=== PATIENT | male | born 1945 | race Caucasian/White ===

== ENCOUNTER 2018-11-16 12:44 | Inpatient (IN) | payer OTHER, MEDICAID ==
[2018-11-16 16:08] LABS: PLATELET COUNT 164 10^3/uL (150-400)
--- NOTE | 2018-11-16 16:08 | ECHO ---
[email or web address] [address] [address] Main: [phone] Echocardiography Examination Transthoracic Name: SANDRITA MURPHY MR#: [id number] Study Date: 11/16/2018 Study Time: 03:15 PM Date of : 1945 Age: 73 year(s) Height: 175.3 cm (69 in.) Weight: 122.47 kg (270 lb.) BSA: 2.35 m2 Gender: Male Examination: Echo Contrast: Image Quality: Adequate Rhythm: Heart Rate: BP: 135 mmHg/82 mmHg Indication: chf, assess PA pressures Procedure Staff Referring Physician: Epic Specialist: Ginny Carver [facility] Reading Physician: Cuauhtemoc Nava MD Requesting Provider: Ordering Physician: Manny Davenport MD Indication: chf, assess PA pressures Measurements Chambers AV/MV Label Value Normal Value Label Value Normal Value IVSd, 2D 1.1 cm (0.6cm - 1.1cm) AV PGmax 11 mmHg LVDd, 2D 5.8 cm (4.2cm - 5.9cm) AV PGmean 8 mmHg LVDs, 2D 3.7 cm (2.1cm - 4cm) AV Vmax 1.68 m/s LVEF, 2D 55 % (54% - 74%) TOMAS D (continuity eq. 1.9 cm2 LVOT PGmean 2 mmHg VTI) LVOT Vmean 0.71 m/s MV A Vmax 0.94 m/s LVOTd 2.2 cm (1.9cm - 2.1cm) MV DT 331 ms LVPWd, 2D 1.1 cm (0.6cm - 1cm) MV E' lateral 0.09 m/s RVDd, 2D 3.7 cm (1.9cm - 3.8cm) MV E' mean 0.07 m/s LA Volume, BP 51 ml (18ml - 58ml) MV E' septal 0.05 m/s LADs, 2D 3.7 cm (3cm - 4cm) MV E Vmax 0.71 m/s LAESV index, BP 21.7 ml/m2 MV E/A 0.76 Additional Vessels MV E/E' lateral 7.8 Label Value Normal Value MV E/E' mean 10.14 AoAsc 3.7 cm MV E/E' septal 13.3 (0.45 - 1.25) AoRoot, 2D 3.4 cm (1.4cm - 2.6cm) MV PHT 0.1 s MV PHT 102 ms MVA PHT 2.2 cm2 TV/PV Patient: SANDRITA MURPHY Study Date: 11/16/2018 Page 1 of 3 03:15 PM Label Value Normal Value RA Pressure 5 mmHg RVSP 22 mmHg TR Pmax 17 mmHg TR Vmax 2.09 m/s PV PGmax 4 mmHg PV Vmax, Caliper 0.98 m/s (0.6m/s - 0.9m/s) Conclusions Left Ventricle: CONCLUSIONS:1)Normal LV size and systolic function with a LVEF of 55% and normal wall motions.2)Mild concentric LVH with mild diastolic dysfunction noted.3)Normal RV size and RV systolic function noted.4)Borderline left atrial enlargement noted.5)Trivial MR without MV prolapse.6)Trivial TR with estimated normal PA pressures.7)Upper limits of normal size ascending thoracic aorta (3.7cm). Findings Technically difficult due to patient body habitus. Left Ventricle: Left ventricle is normal in size. CONCLUSIONS: 1)Normal LV size and systolic function with a LVEF of 55% and normal wall motions. 2)Mild concentric LVH with mild diastolic dysfunction noted. 3)Normal RV size and RV systolic function noted. 4)Borderline left atrial enlargement noted. 5)Trivial MR without MV prolapse. 6)Trivial TR with estimated normal PA pressures. 7)Upper limits of normal size ascending thoracic aorta (3.7cm).There is mild concentric left ventricular hypertrophy. There are no regional wall motion abnormalities. Grade I Diastolic Dysfunction. Right Ventricle: Normal size right ventricle. Right ventricular systolic function is normal. Left Atrium: The left atirum is borderline dilated. Mitral Valve: Mitral valve appears structurally normal. Trivial mitral regurgitation. No mitral valve stenosis. Mild mitral annular calcification. Aortic Valve: Aortic leaflets are structurally normal. No significant aortic valve regurgitation. There is no aortic stenosis. Aortic leaflets exhibit mild calcification. Tricuspid Valve: Tricuspid valve leaflets are structurally normal. Trivial tricuspid regurgitation. No tricuspid valve stenosis. Right Ventricular systolic pressure is measured at 22 mmHg. Pulmonary artery pressure normal. Pulmonic Valve: Pulmonic leaflets are structurally normal. No significant pulmonic valve regurgitation is evident. Aorta: The aortic root size in 2D measures 3.4 cm. The ascending aorta measures 3.7 cm. Aorta Measurements AoRoot, 2D is 3.4 cm. Exam Details Procedure Ordered: Echo Procedure Status: Routine study Patient: SANDRITA MURPHY Study Date: 11/16/2018 Page 2 of 3 03:15 PM Image Quality: Adequate Facility Location: Cardiac Echo 1 (No Signature Object) Patient: SANDRITA MURPHY Study Date: 11/16/2018 Page 3 of 3 03:15 PM [id number]
[2018-11-16 16:14] LABS: INR 0.99 (0.83-1.16); PROTIME(PATIENT) 12.7 SEC (12.0-15.0)
[2018-11-16] MEDS ORDERED: IOPAMIDOL (ISOVUE-370) 150 ML BTL IV ONE (16:29)
[2018-11-16] MEDS: FUROSEMIDE 40 MG/4 ML VIAL IVP SCH ×2 (17:33→23:45)
[2018-11-17] MEDS: FUROSEMIDE 40 MG/4 ML VIAL IVP SCH (06:18)
--- NOTE | 2018-11-17 06:46 | CPEKG ---
Test Reason : OPEN Blood Pressure : / mmHG Vent. Rate : 061 BPM Atrial Rate : 060 BPM P-R Int : 203 ms QRS Dur : 147 ms QT Int : 462 ms P-R-T Axes : 040 -80 016 degrees QTc Int : 466 ms Sinus rhythm Right bundle branch block Inferior infarct, old Confirmed by Manny Self ([id number]) on 11/17/2018 6:45:52 AM Referred By: MANNY SELF Confirmed By:Manny Self
[2018-11-17] MEDS: PANTOPRAZOLE SODIUM 40 MG TAB PO SCH ×2 (08:34→20:51)
[2018-11-17] MEDS: amLODIPine BESYLATE 5 MG TAB PO SCH (08:34)
[2018-11-17] MEDS: ALLOPURINOL 300 MG TAB PO SCH (08:34)
[2018-11-17] MEDS: LISINOPRIL 20 MG TAB PO SCH (08:35)
[2018-11-17] MEDS: FOLIC ACID 1 MG TAB PO SCH (08:35)
[2018-11-17] MEDS: GABAPENTIN 300 MG CAP PO SCH ×2 (08:35→20:50)
[2018-11-17] MEDS: TAMSULOSIN HCL 0.4 MG CAP PO SCH (08:35)
[2018-11-17] MEDS: METHYLPHENIDATE HCL 10 MG PO SCH ×2 (08:39→14:31)
--- NOTE | 2018-11-17 11:28 | SOAPPROG ---
MEETA Progress Note Assessment/Plan: Assessment: 73 y/o man with following cardiac and medical issues: --CAD s/p PCI of RCA and LCX 03/12 --previous near syncope with LINQ in place with no documented arrhythmias --HTN --hyperlipidemia intolerant to statins --LEON --ADDH --chronic obesity Admitted yesterday from cardiology clinic with multiple complaints including 2- 3 months of MARSHALL, leg edema, CP and palptiations. Echo yesterday with LVEF 55%, mild LVH with mild diastolic dysfunction, trivial MR and trivial TR with estimated normal PA pressures. CTA chest no PE and leg u/s no DVT. He has had IV lasix for last 24hrs and has lost 7lbs and feels better. He still has MARSHALL at 10-20ft, atypical CP and some leg edema. PLAN: 1)labs now (BMP). 2)change IV lasix to Demadex 40mg PO BID 3)lexiscan cardiolite in tuesday 4)probably home Tuesday afternoon or Tuesday 5)get out-pt compression stockings as component of venous insufficiency and anxiety too. 11/17/18 11:24 Subjective: very tangential. Has MARSHALL at 10-20ft, some atypical CP, palpitations and leg edema. He feels better than yesterday however. Objective: Vital Signs Temp Pulse Resp BP Pulse Ox 36.8 C 65 18 139/72 H 90 L 11/17/18 06:59 11/17/18 06:59 11/17/18 06:59 11/17/18 06:59 11/17/18 06:59 Laboratory Results 11/16/18 15:51 11/16/18 15:51 11/16/18 11/17/18 11/18/18 05:59 05:59 05:59 Intake Total 1125 Output Total 2975 Balance -1850 PT 12.7 SEC (12.0-15.0) 11/16/18 15:51 INR 0.99 (0.83-1.16) 11/16/18 15:51 Physical Exam - Physical Exam General Appearance: alert, anxiety EENT: normal ENT inspection Neck: full range of motion Respiratory: lungs clear Cardiac/Chest: regular rate, rhythm, systolic murmur (1/6 TU heard), No gallop Peripheral Pulses: 2+: carotid (R), carotid (L), femoral (R), femoral (L), dorsalis-pedis (R), dorsalis-pedis (L) Abdomen: non-tender, No guarding, No ascites Rectal: No normal exam Skin: warm/dry Extremities: pedal edema (1+ bilateral edema.) Neuro/Psych: alert ICD10 Worksheet Patient Problems: Problems Problem Status Onset Coronary artery disease Acute S/P coronary artery stent placement Acute
--- NOTE | 2018-11-17 12:02 | PDMN ---
Medical Necessity Medical necessity: Pt meets IP criteria per MD & MCG MG-190; est los >2 mn for eval/tx of CHF w/chest pain, palpitations, edema & MARSHALL; admit for further workup /monitoring & IV Lasix; hx CAD; per progress note & order 11/16/18
--- NOTE | 2018-11-17 12:21 | PDCONSULT ---
Wrap Yarn Sorter Note: Mario Kahn is a 73 year old male with pmh of CAD, HTN, DM, ADDH, GERD, HTN, gout, and BPH who was admitted from cardiology clinic where he had originally presented with complaints of new left leg swelling and MARSHALL. He said that his symptoms started after a podiatry surgery on his left leg for hammer toes. He said that he thinks the surgery was botched and that he was not given oxygen for the surgery and that afterwards he developed new onset left leg swelling. He has also had new onset MARSHALL when walking short distances that started after this surgery as well. He denied any orthopnea. he does endorse occasional non exertional chest pain. He denied any cough, NV, diarrhea, or other symptoms. PMH-as above, The coronary artery disease Hypertension Diabetes ADD Gout GERD Hypertension BPH Past surgical history Stent placement 2014 linq placement Social Nonsmoker No drugs Does not drink Allergies Extensive including Keflex clean Levaquin penicillins Family history dad with ID at 82 mom had DM. Medications Vitamin-D Lasix 40 mg daily Metformin 750 mg twice a day Ranitidine bid Allopurinol 300 mg daily Gabapentin 300 mg twice daily Tradjenta 5 mg daily Lisinopril 20 mg daily Methylphenidate 10 mg twice daily Singular 10 mg at night Flomax 0.4 mg daily Objective Blood pressure 116/64, heart rate 72, respiration 18, oxygen saturation 92% on 3 L nasal cannula, temperature 36.8 degrees C General-obese male in no acute HEENT- perrla, MMM pink and acyanotic Lungs-clear to auscultation bilaterally Vascular-murmurs rubs or gallops normal S1-S2 Abdomen-no guarding or tenderness, no organomegaly soft nontender nondistended in all 4 quadrants Extremities-with 1 1+ pitting edema to the left calf Skin-rashes or ecchymosis Neuro-2 through 12 grossly intact Assessment plan 73-year-old male with past medical history of obesity coronary artery disease hypertension GERD BPH admitted for further evaluation of new lower extremity edema and dyspnea on exertion Lower extremity edema- started after hammertoe surgery on left foot. Suspect this is related to venous insufficiency. No evidence of infection. Lower extremity ultrasound negative for any DVT and he has palpable pulses. -diuretics -Robert hose Dyspnea on exertion- I reviewed the echocardiogram which showed normal left ventricular ejection fraction of 55%. Concentric LVH with mild diastolic dysfunction. Cardiology is on board and is likely going to take that he will likely take the patient for cardiac catheterization Tuesday morning Diabetes- hold metformin and Tradjenta. Cover with sliding scale insulin for now Hypertension- Not on a beta haily. takes lisinopril 20mg. cont Coronary artery disease- likely cardiac cath tomorrow. stet placed in 2014, but not on bb, asa, or statin. Need to discuss BPH- cont flomax Gout- cont allopurinol. LEON- on bipap HS PPX- heparin subcut Fluids- None Lytes- WNL nutrition- cardiac diet Cor- Full Dispo- inpatient for evaluation of MARSHALL.
--- NOTE | 2018-11-17 16:54 | ASMTCMCOM ---
CM Note CM Note Notes: Reviewed chart and met with pt, he drove here from [place] where he resides. PT cleared pt for home, OT pending. Pt will have a nuclear stress test tomorrow. He plans on staying with some friends after dc then heading up to [facility] to buy some tires. Also states he is leaving in a few weeks to get dental care in [place]. DC Plan: Independent Date Signed: 11/17/2018 04:54 PM Electronically Signed By:Ricarda Sarkar RN
[2018-11-17] MEDS ORDERED: D50W 25 GM/50 ML SYR IVP PRN (16:58)
[2018-11-17] MEDS: INSULIN LISPRO 100 UNIT/ML SC SCH (18:02)
[2018-11-17] MEDS: TORSEMIDE 20 MG TAB PO SCH (20:51)
[2018-11-17] MEDS: MONTELUKAST SODIUM 10 MG TAB PO SCH (20:51)
[2018-11-18] MEDS: TORSEMIDE 20 MG TAB PO SCH ×2 (08:46→19:45)
[2018-11-18] MEDS: amLODIPine BESYLATE 5 MG TAB PO SCH (08:47)
[2018-11-18] MEDS: LISINOPRIL 20 MG TAB PO SCH (08:47)
[2018-11-18] MEDS: FOLIC ACID 1 MG TAB PO SCH (08:47)
[2018-11-18] MEDS: TAMSULOSIN HCL 0.4 MG CAP PO SCH (08:47)
[2018-11-18] MEDS: PANTOPRAZOLE SODIUM 40 MG TAB PO SCH ×2 (08:48→19:46)
[2018-11-18] MEDS: GABAPENTIN 300 MG CAP PO SCH ×2 (08:48→19:46)
[2018-11-18] MEDS: ALLOPURINOL 300 MG TAB PO SCH (08:48)
[2018-11-18] MEDS: METHYLPHENIDATE HCL 10 MG PO SCH ×2 (08:49→16:43)
[2018-11-18] MEDS: INSULIN LISPRO 100 UNIT/ML SC SCH ×3 (08:49→17:15)
[2018-11-18] MEDS: ENOXAPARIN 40 MG/0.4 ML SYR SC SCH (08:51)
[2018-11-18] MEDS ORDERED: REGADENOSON 0.4 MG/5 ML SYR IVP ONE (09:44)
--- NOTE | 2018-11-18 10:12 | PDCARPN ---
Cardiology Progress Note Chief Complaint: DCHF/volume overload Assessment/Plan: Assessment: 73 y/o M with CAD s/p PCI of RCA and LCX 03/12, previous near syncope with LINQ in place with no documented arrhythmias, HTN, hyperlipidemia intolerant to statins, LEON, ADHD, obesity BMI 38, admitted 11/16 from cardiology clinic with multiple complaints including 2-3 months of MARSHALL, leg edema, CP and palpitations. Echo from this admission with LVEF 55%, mild LVH with mild diastolic dysfunction , trivial MR and trivial TR with estimated normal PA pressures. CTA chest no PE and leg u/s no DVT. He has had IV lasix for last 24hrs and has lost 8 lbs and feels better. He still has MARSHALL at 10-20ft, atypical CP and some leg edema. Transitioned to PO Torsemide. #. DCHF: has diuresed from 122 kg to 118 kg today continue PO Torsemide Dr. Nava also recommends getting compression stockings due to component of venous insufficiency #. cp: Lexiscan MPI today #. CAD: PCI in 2014 adding ASA to medical therapy #, htn: BP appears controlled continue Lisinopril #. dyslipidemia: lists intolerance to statins LDL 114 in this admission consider PCSK-9 inhibitor if he has abnormal MPI and requires further interventions #. LEON: on biPAP as outpatient #. dyspnea: we discussed his obesity and deconditioning are likely contributing to this recommend seeing endo to discuss weight loss #. hypoxia: CTA of chest unrevealing would recommend outpatient pulmonary evaluation #. obesity: BMI 38 recommend outpatient endo consult #. ADHD: would enrollment counselor caution in using stimulants in patient with known CAD #. presyncope: LINQ device without episodes and nearing [employer] (recommended replacement time) discussed explant with patient #. DM: per IM #. previous abnormal echo: we reviewed that over weekend, it may be difficult to get these results but will send request #. housing issues: patient requesting resources for housing will ask CM to be involved Plan: - Explant LINQ today - Await MPI results 11/18/18 10:51 Subjective: + Short of breath. Patient is tangential relaying something about pesticide that caused exfoliation on hands and feet. Difficult to ascertain cp history. Objective: Vital Signs (8 Hrs) Temp Pulse Resp BP Pulse Ox 11/18/18 08:00 98.4 F 67 14 124/78 H 92 11/18/18 04:00 98.6 F 72 18 127/71 H 92 Intake/Output (24 Hrs) 11/17/18 11/18/18 11/19/18 05:59 05:59 05:59 Intake Total 1125 800 200 Output Total 2972049 2100 Balance -1850 -1250 -1900 Intake: Oral (ml) 1125 800 200 Output: Urine (ml) 2972049 2100 Toilet 500 Urinal 2975 2049 1600 Other: Weight 119.9 kg 118.297 kg Number of Voids Toilet 1 Urinal 1 3 Number of Stools Toilet 1 Result Diagrams: 11/18/18 05:40 11/18/18 05:40 Cardiac Labs: Cardiac Lab Results (72 Hrs) 11/17/18 11/16/18 11/16/18 08:40 23:46 18:44 CK-MB (CK-2) Fraction 1.77 2.75 2.59 Troponin I < 0.012 < 0.012 < 0.012 11/16/18 15:51 CK-MB (CK-2) Fraction 3.64 Troponin I < 0.012 EKG: personally interpreted shows SR 1st deg AVB, RBBB, inf Qs Telemetry: reviewed, rare PVCs - Physical Exam Constitutional: no apparent distress Eyes: PERRL, anicteric sclera Ears, Nose, Mouth, Throat: moist mucous membranes Cardiovascular: regular rate and rhythm, no murmurs Respiratory: clear to auscultate bilat, no crackles Gastrointestinal: normoactive bowel sounds Skin: warm, other (L leg with venostatic changes/ ankle and pedal edema) Neurologic: AAOx3 Psychiatric: cooperative, interactive ICD10 Worksheet Patient Problems: Problems Problem Status Onset Coronary artery disease Acute S/P coronary artery stent placement Acute
--- NOTE | 2018-11-18 10:39 | PDCARST ---
CAR Stress Test Results Type of Stress Test: Lexiscan stress test Indication: cp Description of Procedure: After informed consent was obtained, pt was established to ECG, blood pressure, HR and oximetry monitoring. STRESS EKG AND HEMODYNAMIC DATA. Resting heart rate: 67 BPM. Resting ECG: SR. Resting blood pressure: 124/78 mmHg. O2 saturation at rest: 92% 4 lpm. Peak heart rate: 67 BPM. Peak blood pressure: 140/70. Arrhythmias: none. Symptoms: The patient experienced no typical symptoms of angina during stress or recovery. Stress/Infusion ECG: No change in rhythm with no significant ST/T wave changes. Stress/infusion O2 saturation: stable Impression: Uneventful Lexiscan infusion. Conclusion: Await nuclear images.
[2018-11-18] MEDS ORDERED: LIDOCAINE 1% 300 MG/30 ML SDV ONE (11:02)
[2018-11-18] MEDS ORDERED: BACITRACIN IRRIGATION/NS 50,000 UNITS/1,000 ML BTL IRR ONE (12:00)
[2018-11-18] MEDS: ASPIRIN EC 81 MG TAB PO SCH (12:40)
--- NOTE | 2018-11-18 13:14 | CPIP ---
[f rep st] INVASIVE CARDIAC PROCEDURE DATE OF PROCEDURE: 11/18/2018 INDICATIONS: The patient is 73 years old. He has had a Medtronic LINQ implanted several years ago. The device is currently at replacement indicators. PROCEDURE: Explantation of a Medtronic LINQ. TECHNIQUE: Following informed consent, the patient was brought to the cardiac catheterization [facility]. Left chest was prepped and draped in sterile fashion. 2% lidocaine was infiltrated in the ski n overlying the previously placed LINQ. A 2 cm incision was made. The LINQ was then extracted from the subcutaneous pocket. The pocket was irrigated with antibiotic-containing solution and closed wit h 2 romel. COMPLICATIONS: None. DISPOSITION: The patient will be returned to his room. He can be discharged home today. I have adv ised him that in 5 days time he needs to follow up and have romel removed. /[id number]/MODL
--- NOTE | 2018-11-18 16:26 | HOSPPROG ---
Hospitalist Progress Note Assessment/Plan: Assessment plan 73-year-old male with past medical history of obesity coronary artery disease hypertension GERD BPH admitted for further evaluation of new lower extremity edema and dyspnea on exertion Lower extremity edema- started after hammertoe surgery on left foot. Suspect this is related to venous insufficiency. No evidence of infection. Lower extremity ultrasound negative for any DVT and he has palpable pulses. -diuretics, transition to torsemide -Robert hose Dyspnea on exertion- I reviewed the echocardiogram which showed normal left ventricular ejection fraction of 55%. Concentric LVH with mild diastolic dysfunction. -lexiscan today -will need to stay for resting MPI imaging -continue torsemide Diabetes- hold metformin and Tradjenta. Cover with sliding scale insulin for now Hypertension- Not on a beta haily. takes lisinopril 20mg. cont Coronary artery disease- stet placed in 2014, but not on bb, asa, or statin. start asa therapy. BPH- cont flomax Gout- cont allopurinol. LEON- on bipap HS Linq monitor- has been in place for years and not used. Planned to be removed today. PPX- heparin subcut Fluids- None Lytes- WNL nutrition- cardiac diet Cor- Full Dispo- inpatient for evaluation of MARSHALL. Subjective: tired today. no other complaints. Objective: Vital Signs Temp Pulse Resp BP Pulse Ox 36.8 C 75 17 92/50 L 92 11/18/18 15:42 11/18/18 15:42 11/18/18 15:42 11/18/18 15:42 11/18/18 15:42 Laboratory Results 11/18/18 05:40 11/18/18 05:40 11/17/18 11/18/18 11/19/18 05:59 05:59 05:59 Intake Total 1125 800 200 Output Total 2975 2050 3050 Balance -1850 -1250 -2850 PT 12.7 SEC (12.0-15.0) 11/16/18 15:51 INR 0.99 (0.83-1.16) 11/16/18 15:51 - Physical Exam Constitutional: no apparent distress, appears nourished, not in pain Eyes: PERRL, anicteric sclera, EOMI Ears, Nose, Mouth, Throat: moist mucous membranes, hearing normal, ears appear normal, no oral mucosal ulcers Cardiovascular: regular rate and rhythym, no murmur, rub, or gallop, edema ( left leg edema improved today. ) Respiratory: no respiratory distress, no rales or rhonchi, clear to auscultation Gastrointestinal: normoactive bowel sounds, soft, non-tender abdomen, no palpable masses Genitourinary: no bladder fullness, no bladder tenderness, no renal bruits Skin: no rashes or abrasions, no fluctuance, no induration Musculoskeletal: full muscle strength, no muscle tenderness, normal joint ROM Neurologic: AAOx3, sensation intact bilaterally Psychiatric: interacting appropriately, not anxious, not encephalopathic, thought process linear Lymph, Heme, Immunologic: no cervical LAD, no supraclavicular LAD ICD10 Worksheet Patient Problems: Problems Problem Status Onset Coronary artery disease Acute S/P coronary artery stent placement Acute
[2018-11-18] MEDS: MONTELUKAST SODIUM 10 MG TAB PO SCH (19:46)
[2018-11-19] MEDS: METHYLPHENIDATE HCL 10 MG PO SCH ×2 (09:50→13:09)
[2018-11-19] MEDS: INSULIN LISPRO 100 UNIT/ML SC SCH ×3 (09:50→18:25)
[2018-11-19] MEDS: TAMSULOSIN HCL 0.4 MG CAP PO SCH (09:51)
[2018-11-19] MEDS: FOLIC ACID 1 MG TAB PO SCH (09:51)
[2018-11-19] MEDS: TORSEMIDE 20 MG TAB PO SCH ×2 (09:51→20:53)
[2018-11-19] MEDS: LISINOPRIL 20 MG TAB PO SCH (09:52)
[2018-11-19] MEDS: ENOXAPARIN 40 MG/0.4 ML SYR SC SCH (09:52)
[2018-11-19] MEDS: ALLOPURINOL 300 MG TAB PO SCH (09:52)
[2018-11-19] MEDS: PANTOPRAZOLE SODIUM 40 MG TAB PO SCH ×2 (09:52→20:53)
[2018-11-19] MEDS: GABAPENTIN 300 MG CAP PO SCH ×2 (09:52→20:53)
[2018-11-19] MEDS: ASPIRIN EC 81 MG TAB PO SCH (09:52)
[2018-11-19] MEDS: amLODIPine BESYLATE 5 MG TAB PO SCH (09:52)
--- NOTE | 2018-11-19 09:52 | SOAPPROG ---
MEETA Progress Note Assessment/Plan: Assessment: 73 y/o man with following cardiac and medical issues: --CAD s/p PCI of RCA and LCX 03/12 --previous near syncope with LINQ in place with no documented arrhythmias --HTN --hyperlipidemia intolerant to statins --LEON --ADDH --chronic obesity Admitted three days ago from cardiology clinic with multiple complaints including 2-3 months of MARSHALL, leg edema, CP and palptiations. Echo yesterday with LVEF 55%, mild LVH with mild diastolic dysfunction, trivial MR and trivial TR with estimated normal PA pressures. CTA chest no PE and leg u/s no DVT. He had IV lasix for 36hrs then changed to PO Demadex. He feels better. Denies CP, rest shortness of breath and thinks his edema is better. He has very odd affect and thinks all his problems are living in [place] and wants a medical letter stating medically necessary to move back to assisted care facility in [facility]. PLAN: 1)no change in current meds. 2)finish cardiolite study today. 3)if no or little coronary ischemia, discharge later today with follow up with PCP in [place] in one week to remove LINQ romel and Dr. Davenport in 2-4 weeks. 4)if cardiolite shows moderate to severe ischemia, keep overnight and L/R cardiac cath tomorrow. 11/19/18 09:48 Subjective: he feels better with no more CP, rest dyspnea or dizziness. His leg edema is gone. Objective: Vital Signs Temp Pulse Resp BP Pulse Ox 36.8 C 74 20 124/71 H 94 11/19/18 08:18 11/19/18 08:18 11/19/18 08:18 11/19/18 08:18 11/19/18 08:18 Laboratory Results 11/18/18 05:40 11/18/18 05:40 11/18/18 11/19/18 11/20/18 05:59 05:59 05:59 Intake Total 800 1000 Output Total 2049 4100 520 Balance -1250 -3100 -520 PT 12.7 SEC (12.0-15.0) 11/16/18 15:51 INR 0.99 (0.83-1.16) 03/21/19 15:51 Physical Exam - Physical Exam General Appearance: alert, obese EENT: normal ENT inspection Neck: non-tender Respiratory: lungs clear Cardiac/Chest: regular rate, rhythm, No gallop, No JVD Peripheral Pulses: 2+: carotid (R), carotid (L), femoral (R), femoral (L), dorsalis-pedis (R), dorsalis-pedis (L) Abdomen: non-tender, No guarding, No ascites Skin: warm/dry Extremities: No pedal edema Neuro/Psych: alert ICD10 Worksheet Patient Problems: Problems Problem Status Onset Coronary artery disease Acute S/P coronary artery stent placement Acute
--- NOTE | 2018-11-19 13:06 | HOSPPROG ---
Hospitalist Progress Note Assessment/Plan: Assessment plan 73-year-old male with past medical history of obesity coronary artery disease hypertension GERD BPH admitted for further evaluation of new lower extremity edema and dyspnea on exertion Lower extremity edema- started after hammertoe surgery on left foot. Suspect this is related to venous insufficiency. No evidence of infection. Lower extremity ultrasound negative for any DVT and he has palpable pulses. -diuretics, transition to torsemide -Robert hose Dyspnea on exertion- I reviewed the echocardiogram which showed normal left ventricular ejection fraction of 55%. Concentric LVH with mild diastolic dysfunction. -lexiscan yesterday apparently with some area of possible ischemia. Obtain resting images today. If normal then can dc otherwise will need [facility]. -continue torsemide Diabetes- hold metformin and Tradjenta. Cover with sliding scale insulin for now Hypertension- Not on a beta haily. takes lisinopril 20mg. cont Coronary artery disease- stent placed in 2014, but not on bb, asa, or statin. start asa therapy. Linq removed yesterday, will lneed to follow up for staple removal. BPH- cont flomax Gout- cont allopurinol. LEON- on bipap HS PPX- heparin subcut Fluids- None Lytes- WNL nutrition- cardiac diet Cor- Full Dispo- inpatient for evaluation of MARSHALL. Subjective: thinks his problems are related to living in [place] and wants to move here, No chest pain, cough or other concerns. Objective: Vital Signs Temp Pulse Resp BP Pulse Ox 36.7 C 77 18 123/79 H 90 L 11/19/18 11:17 11/19/18 11:17 11/19/18 11:17 11/19/18 11:17 11/19/18 11:17 Laboratory Results 11/19/18 12:00 11/19/18 10:30 11/18/18 11/19/18 11/20/18 05:59 05:59 05:59 Intake Total 800 1000 Output Total 2049 410 795 Balance -1250 -3100 -795 PT 12.7 SEC (12.0-15.0) 11/16/18 15:51 INR 0.99 (0.83-1.16) 11/16/18 15:51 - Physical Exam Constitutional: no apparent distress Eyes: PERRL Ears, Nose, Mouth, Throat: moist mucous membranes Cardiovascular: regular rate and rhythym Respiratory: no respiratory distress Gastrointestinal: normoactive bowel sounds Genitourinary: no bladder fullness Skin: warm Musculoskeletal: full muscle strength Neurologic: AAOx3 Psychiatric: interacting appropriately Lymph, Heme, Immunologic: no cervical LAD ICD10 Worksheet Patient Problems: Problems Problem Status Onset Coronary artery disease Acute S/P coronary artery stent placement Acute
[2018-11-19] MEDS: MONTELUKAST SODIUM 10 MG TAB PO SCH (20:53)
[2018-11-20 04:16] LABS: PLATELET COUNT 171 10^3/uL (150-400)
[2018-11-20] MEDS ORDERED: FAMOTIDINE 20 MG TAB PO ONE (06:39)
[2018-11-20] MEDS ORDERED: diphenhydrAMINE 25 MG CAP PO ONE (06:39)
[2018-11-20] MEDS ORDERED: ASPIRIN EC 325 MG TAB PO ONE (06:39)
[2018-11-20] MEDS ORDERED: TEMAZEPAM 15 MG CAP PO PRN (06:39)
[2018-11-20] MEDS ORDERED: DIAZEPAM 5 MG TAB PO ONE (06:39)
[2018-11-20] MEDS ORDERED: NS 1,000 ML IV SCH ×3 (06:45→16:15)
--- NOTE | 2018-11-20 08:38 | PDPROPOC ---
Sedation Plan of Care Sedation Plan of Care: vital signs stable, mental status noted, patient educated of risks, benefits, alternatives, patient can tolerate sedation ASA Classification: ASA 2 Planned drugs: fentanyl, midazolam Mallampati Score: Class 2 Mallampati Reference Image:
[2018-11-20 09:00] LABS: PLATELET COUNT 184 10^3/uL (150-400)
[2018-11-20 09:08] LABS: INR 0.95 (0.83-1.16); PROTIME(PATIENT) 12.3 SEC (12.0-15.0)
--- NOTE | 2018-11-20 09:31 | SOAPPROG ---
SOAP Progress Note Assessment/Plan: Assessment: Problem list: 1. Coronary disease history of RCA stenting 2. Venous insufficiency 3. Morbid obesity 4. Sleep apnea 5. Doubling of creatinine associated with aggressive diuresis: 1.4 6. Diabetes Procedure: Echocardiogram showed preserved LV systolic function with no significant valvular heart disease. Lexiscan suggest inferolateral ischemia. Ultrasound of the lower extremity revealed no DVT. CT pulmonary angiogram revealed no PE, dependent atelectasis. 11/20/18 09:28 Impression: Clinically improved since I admitted in from the clinic. He is weight is down about 12 lb. Lower extremity swelling has improved with elevation of the leg, diuresis. Social issues continue to be the dominant discussion as it relates to his living situation in [place]. From a symptomatic point of view he denies chest pain. He has had no further shortness of breath. Recommendations: Left heart catheterization today to complete workup. IV normal saline in light of elevation in creatinine, limitation of contrast to coronary is only. Reduced diuretic therapy. Continue executive secretary social welfare evaluation for long-term care. Subjective: Feeling well. Multiple questions regarding his social situation in [place]. No chest pain, shortness of breath. Decreased lower extremity swelling. Difficulty in putting on his venous hose due to arthritis in his hands. He states he is unable to care for himself at home. Objective: Medications Generic Name Dose Route Start Last Admin Trade Name Anshu PRN Reason Stop Dose Admin Allopurinol 300 mg 11/17/18 09:00 11/19/18 09:52 Allopurinol PO 05/16/19 08:59 300 mg DAILY [facility] Amlodipine Besylate 5 mg 11/17/18 09:00 11/19/18 09:52 Norvasc PO 05/16/19 08:59 5 mg DAILY [facility] Aspirin Buffered 81 mg 11/18/18 09:45 11/19/18 09:52 Aspirin Ec PO 05/17/19 09:44 81 mg DAILY [facility] Folic Acid 0.5 mg 11/17/18 09:00 11/19/18 09:51 Folic Acid PO 05/16/19 08:59 0.5 mg DAILY [facility] Lisinopril 20 mg 11/17/18 09:00 11/19/18 09:52 Zestril PO 05/16/19 08:59 20 mg DAILY [facility] Tamsulosin HCl 0.4 mg 11/17/18 09:00 11/19/18 09:51 Flomax PO 05/16/19 08:59 0.4 mg DAILY [facility] Torsemide 40 mg 11/17/18 21:00 11/19/18 20:53 Demadex PO 05/16/19 20:59 40 mg BID [facility] Vital Signs Temp Pulse Resp BP Pulse Ox 37.0 C 72 18 135/72 H 98 11/20/18 08:00 11/20/18 08:00 11/20/18 08:00 11/20/18 08:00 11/20/18 08:00 Laboratory Results 11/20/18 08:00 11/20/18 08:00 11/19/18 11/20/18 11/21/18 05:59 05:59 05:59 Intake Total 1000 890 Output Total 4100 3020 Balance -3100 -2130 PT 12.3 SEC (12.0-15.0) 11/20/18 08:00 INR 0.95 (0.83-1.16) 11/20/18 08:00 Physical Exam - Physical Exam General Appearance: alert, no apparent distress Neck: supple Respiratory: lungs clear Cardiac/Chest: edema, No gallop, No JVD Abdomen: normal bowel sounds, non-tender Skin: warm/dry Extremities: pedal edema, No calf tenderness Neuro/Psych: alert ICD10 Worksheet Patient Problems: Problems Problem Status Onset Coronary artery disease Acute S/P coronary artery stent placement Acute
[2018-11-20] MEDS ORDERED: LIDOCAINE 1% 300 MG/30 ML SDV ONE (10:35)
[2018-11-20] MEDS ORDERED: MIDAZOLAM 2 MG/2 ML VIAL ONE (10:36)
[2018-11-20] MEDS ORDERED: fentaNYL 100 MCG/2 ML INJ ONE (10:36)
[2018-11-20] MEDS ORDERED: IOPAMIDOL (ISOVUE-370) 150 ML BTL IV ONE (10:36)
[2018-11-20] MEDS ORDERED: VERAPAMIL 5 MG/2 ML VIAL ONE (11:17)
[2018-11-20] MEDS ORDERED: HEPARIN 10,000 UNIT/10 ML MDV (1,000 UNIT/ML) ONE (11:19)
[2018-11-20] MEDS: INSULIN LISPRO 100 UNIT/ML SC SCH ×3 (13:16→18:50)
[2018-11-20] MEDS: METHYLPHENIDATE HCL 10 MG PO SCH ×2 (13:17→14:22)
--- NOTE | 2018-11-20 13:34 | PDDXCAT ---
Diagnostic Cath Note - . Date: 11/20/18 Commercial Lines Manager: Issac Indication: other (class3 CHF) - Procedure Access: right wrist Procedure: left heart catheterization, coronary angiography - Materials Left Heart Cath size: 5F Left Heart Cath materials: pigtail, other (tiger 4) Right Heart Cath size: 5F Right Heart Cath materials: PWP catheter - Findings-Left Heart Catheterization LM: Normal LAD: Normal LCX: Normal RCA: Dominant: Unobstructed: Stent widely patent EDP: 8 mm of mercury LVEF: Not performed with elevated creatinine - Findings-Right Heart Catheterization RA: 4 mm of mercury RV: 30/4 mm of mercury PA: 8 mm of mercury PAOP: 30/8 mm of mercury Complications: None Estimated blood loss: <50ml Closure method: TR Band Assessment: Hemodynamic suggest prerenal azotemia with doubling of creatinine. Right coronary artery stent widely patent with no significant progression of underlying atherosclerotic disease. Normal right heart pressures. Plan: Reduced diuretic dose Gentle IV fluids Continue current secondary prevention with clinical follow-up. Patient Problems: Problems Problem Status Onset Coronary artery disease Acute S/P coronary artery stent placement Acute
[2018-11-20] MEDS: LISINOPRIL 20 MG TAB PO SCH (14:15)
[2018-11-20] MEDS: FOLIC ACID 1 MG TAB PO SCH (14:15)
[2018-11-20] MEDS: amLODIPine BESYLATE 5 MG TAB PO SCH (14:16)
[2018-11-20] MEDS: ALLOPURINOL 300 MG TAB PO SCH (14:16)
[2018-11-20] MEDS: GABAPENTIN 300 MG CAP PO SCH ×2 (14:16→20:31)
[2018-11-20] MEDS: ASPIRIN EC 81 MG TAB PO SCH (14:17)
[2018-11-20] MEDS: PANTOPRAZOLE SODIUM 40 MG TAB PO SCH ×2 (14:39→20:31)
[2018-11-20] MEDS: TORSEMIDE 20 MG TAB PO SCH (14:39)
[2018-11-20] MEDS: TAMSULOSIN HCL 0.4 MG CAP PO SCH (14:39)
--- NOTE | 2018-11-20 15:07 | ASMTCMCOM ---
CM Note CM Note Notes: Pts case discussed in tx rounds. Therapies have both cleared pt to d/c without any needs. Pt went for a heart cath today. OT reported that pt told her that he locked up his puppy in the house with ample food and water. CM met w/ pt to discuss this w/ him. Pt reports that he has a friend that could check on the puppy but he thinks that the puppy will be fine. No other needs available at this time. CM available for changes. Plan: Independent Date Signed: 11/20/2018 03:04 PM Electronically Signed By:OLE Toribio
--- NOTE | 2018-11-20 16:07 | HOSPPROG ---
Hospitalist Progress Note Assessment/Plan: 73-year-old male with past medical history of obesity, coronary artery disease , hypertension, GERD, BPH, admitted for further evaluation of new lower extremity edema and dyspnea on exertion. hosp course c/b overdiuresis Lower extremity edema- started after hammertoe surgery on left foot. Suspect this is related to venous insufficiency. No evidence of infection. Lower extremity ultrasound negative for any DVT and he has palpable pulses. improved diuretics on hold DAKOTA: overdiuresis LVEDP 8 in crown and bridge dental lab technician give 1 L NS Dyspnea on exertion- I reviewed the echocardiogram which showed normal left ventricular ejection fraction of 55%. Concentric LVH with mild diastolic dysfunction. cath w patent coronaries Diabetes- hold metformin and Tradjenta. Cover with sliding scale insulin for now Hypertension- Not on a beta haily. takes lisinopril 20mg. cont Coronary artery disease- stent placed in 2014, but not on bb, asa, or statin. start asa therapy. Linq removed yesterday, will lneed to follow up for staple removal. BPH- cont flomax Gout- cont allopurinol. Subjective: case d/w dr villalobos. cath w patent stents Objective: Vital Signs Temp Pulse Resp BP Pulse Ox 36.8 C 70 18 137/78 H 93 11/20/18 15:39 11/20/18 15:39 11/20/18 15:39 11/20/18 15:39 11/20/18 15:39 Laboratory Results 11/20/18 08:00 11/20/18 08:00 11/19/18 11/20/18 11/21/18 05:59 05:59 05:59 Intake Total 1000 890 Output Total 4100 3020 Balance -3100 -2130 PT 12.3 SEC (12.0-15.0) 11/20/18 08:00 INR 0.95 (0.83-1.16) 11/20/18 08:00 - Physical Exam Constitutional: no apparent distress, appears nourished Eyes: PERRL, anicteric sclera Ears, Nose, Mouth, Throat: moist mucous membranes, hearing normal Cardiovascular: regular rate and rhythym, no murmur, rub, or gallop Respiratory: no respiratory distress, no rales or rhonchi Gastrointestinal: normoactive bowel sounds, soft, non-tender abdomen Genitourinary: no bladder fullness Skin: warm, normal color Musculoskeletal: full muscle strength Neurologic: AAOx3 ICD10 Worksheet Patient Problems: Problems Problem Status Onset Coronary artery disease Acute S/P coronary artery stent placement Acute
[2018-11-20] MEDS: MONTELUKAST SODIUM 10 MG TAB PO SCH (20:31)
[2018-11-21] MEDS: METHYLPHENIDATE HCL 10 MG PO SCH ×2 (09:07→13:10)
[2018-11-21] MEDS: INSULIN LISPRO 100 UNIT/ML SC SCH ×2 (09:07→10:30)
[2018-11-21] MEDS: LISINOPRIL 20 MG TAB PO SCH (09:15)
[2018-11-21] MEDS: PANTOPRAZOLE SODIUM 40 MG TAB PO SCH (09:15)
[2018-11-21] MEDS: TAMSULOSIN HCL 0.4 MG CAP PO SCH (09:15)
[2018-11-21] MEDS: ASPIRIN EC 81 MG TAB PO SCH (09:16)
[2018-11-21] MEDS: ALLOPURINOL 300 MG TAB PO SCH (09:16)
[2018-11-21] MEDS: FOLIC ACID 1 MG TAB PO SCH (09:16)
[2018-11-21] MEDS: amLODIPine BESYLATE 5 MG TAB PO SCH (09:16)
[2018-11-21] MEDS: GABAPENTIN 300 MG CAP PO SCH (09:16)
[2018-11-21 11:01] VITALS: BP 111/56
--- NOTE | 2018-11-21 11:35 | PDHOMEO2F ---
Home Oxygen Face to Face Home Orders: I certify that a physician or a nurse practitioner or physician's assistant food service director has had a [id number] encounter with this patient on the date of this order due to the diagnosis listed, which relates to the primary reason the patient requires home oxygen. Alternative treatments have been tried, or considered, and deemed ineffective. It is anticipated that supplemental oxygen will result in improvement with treatment. Home oxygen qualifying diagnosis: diastolic heart failure Home oxygen secondary diagnosis: obesity hypoventilation syndrome SpO2 on room air (%): 84 Frequency of home oxygen needed: continuous Home oxygen liters per minute: 3 Home oxygen delivery device: nasal cannula Concentrator: Yes E-tanks for mobility and back up: Yes If ordering portable O2, is the patient mobile in the home?: Yes I certify that, based on these findings, the home oxygen is medically necessary for this patient for the following length of time. Length of time home oxygen needed: 99 years
--- NOTE | 2018-11-21 11:38 | PDDCSUM ---
Discharge Summary Discharge Summary: Dates of service 11/17-11/21/28 Consultations: cardiology Procedures performed: echo, chest CTA, right/left heart cath, nuc stress test, LINQ removal Hospital course by problem: 73-year-old male with past medical history of obesity, chronic hypoxic respiratory failure, coronary artery disease, hypertension, GERD, BPH, admitted for further evaluation of new lower extremity edema and dyspnea on exertion. hosp course c/b overdiuresis Lower extremity edema- given hx of chronic hypoxia and non compliance with o2 as well as LEON initial concern for pulmonary htn however echo and right heart cath showing normal PAP. Lower extremity ultrasound negative for any DVT. Will continue to hold diuresis for now given DAKOTA and will f/u with PCP to determine when to resume. Some component of venous insufficiency, continue fab hose. d DAKOTA: due to overdiuresis, improved but not yet back to baseline, as above Acute on chronic hypoxic respiratory failure: patient complaining of dyspnea on exertion-with preserved EF on echo, cath with clean coronaries, CXR and chest CTA unremarkable. F/u for pulmonary function testing would be appropriate. He is meant to be on 3L of O2 continuously at home but is not compliant with that. Reviewed importance of that. Diabetes- resume metformin and Tradjenta. Hypertension- continue lisinopril 20mg. and amlodipine Coronary artery disease- stent placed in 2014 and is patent on cath, f/u with cardiology after dc, continue home meds morbid obesity: f/u with pcp BPH- cont flomax Gout- cont allopurinol. dc home--he lives in [facility] and plans to drive there in a couple of days from now, agrees to wear oxygen for the drive f/u with pcp, cardiology > 35 min spent in dc more than half in counseling patient and coordination of care
--- NOTE | 2018-11-21 12:28 | SOAPPROG ---
SOAP Progress Note Assessment/Plan: Assessment: Problem list: 1. Coronary disease history of RCA stenting 2. Venous insufficiency 3. Morbid obesity 4. Sleep apnea 5. Doubling of creatinine associated with aggressive diuresis: 1.4 6. Diabetes Procedure: Echocardiogram showed preserved LV systolic function with no significant valvular heart disease. Lexiscan suggest inferolateral ischemia. Ultrasound of the lower extremity revealed no DVT. CT pulmonary angiogram revealed no PE, dependent atelectasis. Left heart catheterization revealing widely patent site of prior stenting with overall preserved LV function. Right heart hemodynamics showed normal right heart pressures with reduced LV EDP. 11/21/18 12:27 Impression: Clinically improved since admission with resolved lower extremity swelling. Right coronary artery stent is widely patent with overall preserved LV function. His medicines were optimized. Continue aggressive secondary prevention with clinical follow-up as an outpatient. 11/20/18 09:28 Impression: Clinically improved since I admitted in from the clinic. He is weight is down about 12 lb. Lower extremity swelling has improved with elevation of the leg, diuresis. Social issues continue to be the dominant discussion as it relates to his living situation in [place]. From a symptomatic point of view he denies chest pain. He has had no further shortness of breath. Recommendations: Left heart catheterization today to complete workup. IV normal saline in light of elevation in creatinine, limitation of contrast to coronary is only. Reduced diuretic therapy. Continue director of social services evaluation for long-term care. Subjective: Feeling well ready go home. Cardiac review of systems is negative for chest pain, shortness of breath, PND , orthopnea, palpitations, syncope, near syncope, edema. Objective: Vital Signs Temp Pulse Resp BP Pulse Ox 36.8 C 67 12 111/56 L 94 11/21/18 11:00 11/21/18 11:00 11/21/18 11:00 11/21/18 11:00 11/21/18 11:00 Laboratory Results 11/20/18 08:00 11/21/18 03:55 11/20/18 11/21/18 11/22/18 05:59 05:59 05:59 Intake Total 890 2250 Output Total 3020 1800 Balance -2130 450 PT 12.3 SEC (12.0-15.0) 11/20/18 08:00 INR 0.95 (0.83-1.16) 11/20/18 08:00 Physical Exam - Physical Exam General Appearance: no apparent distress Respiratory: chest non-tender, lungs clear Cardiac/Chest: regular rate, rhythm Skin: warm/dry, No pallor, No rash Extremities: other (Left leg significantly improved with trace edema compared to right) Neuro/Psych: oriented x 3, No facial droop ICD10 Worksheet Patient Problems: Problems Problem Status Onset Coronary artery disease Acute S/P coronary artery stent placement Acute
[2018-11-21] MEDS ORDERED: POTASSIUM CL 20 MEQ PKT PO SCH (13:00)
[2018-11-22] MEDS ORDERED: POTASSIUM CL 20 MEQ PKT PO SCH (09:00)
--- NOTE | 2018-11-23 08:45 | CPEKG ---
Test Reason : OPEN Blood Pressure : / mmHG Vent. Rate : 077 BPM Atrial Rate : 077 BPM P-R Int : 188 ms QRS Dur : 152 ms QT Int : 438 ms P-R-T Axes : 022 255 053 degrees QTc Int : 496 ms Sinus rhythm Right bundle branch block Inferior infarct, old Confirmed by Khurram Harris ([id number]) on 11/23/2018 8:45:27 AM Referred By: Manny Davenport Confirmed By:Khurram Harris
--- NOTE | 2018-11-23 08:51 | CPEKG ---
Test Reason : AMI Blood Pressure : / mmHG Vent. Rate : 070 BPM Atrial Rate : 070 BPM P-R Int : 197 ms QRS Dur : 151 ms QT Int : 434 ms P-R-T Axes : 033 255 011 degrees QTc Int : 469 ms Sinus rhythm Right bundle branch block Inferior infarct, old Confirmed by Khurram Harris ([id number]) on 11/23/2018 8:51:04 AM Referred By: Manny Davenport Confirmed By:Khurram Harris
--- NOTE | 2018-11-23 09:01 | CPEKG ---
Test Reason : OPEN Blood Pressure : / mmHG Vent. Rate : 077 BPM Atrial Rate : 078 BPM P-R Int : 190 ms QRS Dur : 151 ms QT Int : 422 ms P-R-T Axes : 006 254 012 degrees QTc Int : 478 ms Sinus rhythm Right bundle branch block Inferior infarct, old Confirmed by Khurram Harris ([id number]) on 11/23/2018 9:01:33 AM Referred By: KATIE SELF Confirmed By:Khurram Harris
== END 2018-11-21 16:09 | disposition home or self-care (01) | DRG 286 ==
LOC: F2W 14:01 → OBSVTOIN 14:58
PROVIDERS: ADMIT Internal Medicine Interventional Cardiology; ATTEND Internal Medicine Interventional Cardiology
PROC: 0JPT32Z Removal of Monitoring Device from Trunk Subcutaneous Tissue and Fascia, Percutaneous Approach (ICD-10-PCS; 2018-11-18)
PROC: 4A023N8 Measurement of Cardiac Sampling and Pressure, Bilateral, Percutaneous Approach (ICD-10-PCS; principal; 2018-11-20)
PROC: B2111ZZ Fluoroscopy of Multiple Coronary Arteries using Low Osmolar Contrast (ICD-10-PCS; principal; 2018-11-20)
DX: I87.2 Venous insufficiency (chronic) (peripheral) (principal); J96.21 Acute and chronic respiratory failure with hypoxia; I25.10 Atherosclerotic heart disease of native coronary artery without angina pectoris; E11.9 Type 2 diabetes mellitus without complications; N17.9 Acute kidney failure, unspecified; N40.0 Benign prostatic hyperplasia without lower urinary tract symptoms; G47.33 Obstructive sleep apnea (adult) (pediatric); M10.9 Gout, unspecified; E66.01 Morbid (severe) obesity due to excess calories; E78.5 Hyperlipidemia, unspecified; Z68.38 Body mass index [BMI] 38.0-38.9, adult; Z95.5 Presence of coronary angioplasty implant and graft
CPT/HCPCS: 97161-GP; 97165-GO; 97535-GO; A9500; C1769; J1644; J1650; J1940; J2250; J2785; J3010; Q9967